=== PATIENT | female | born 1950 | race Caucasian/White ===

== ENCOUNTER → 2018-05-08 | Outpatient (CLI) | payer MEDICARE, OTHER ==
--- NOTE | 2018-05-08 14:07 | RAD ---
EXAM: Dual energy x-ray absorptiometry (DEXA). HISTORY: Postmenopausal female presents for osteoporosis screening. COMPARISON: 05/03/2016 and 05/06/2008. TECHNIQUE: Dual energy x-ray absorptiometry of the lumbar spine and right hip was performed. Calculation of bone mineral density based on standard deviations above or below the expected young adult normal value (T-score) was completed. FINDINGS: The average bone mineral density in the 1st through 4th lumbar vertebrae is 1.103 g/cmxcm, corresponding with a T-score of -0.6. There has been a 3.6% decrease in bone mineral density of the lumbar spine compared to a baseline study dated 05/06/2008. The average total bone mineral density in the right hip is 0.957 g/cmxcm, corresponding with a T-score of 0.0. There has been a 3.4% decrease in bone mineral density of the right hip compared to a baseline study dated 05/06/2008. IMPRESSION: Normal bone mineral density. Note: Definitions established by the World Health Organization: 1. Normal: T-score is -1.0 or above. 2. Osteopenia: T-score is between -1.0 and -2.5 . 3. Osteoporosis: T-score is -2.5 or below. Electronically signed by: Genoveva Blackburn MD (05/08/2018 2:03 PM) [place] [id number]
== END | disposition home or self-care (01) ==
LOC: DXRAD 11:41
PROVIDERS: ATTEND Family Medicine
DX: Z13.820 Encounter for screening for osteoporosis (principal); Z78.0 Asymptomatic menopausal state
CPT/HCPCS: 77080

== ENCOUNTER → 2020-05-12 | Outpatient (CLI) | payer MEDICARE, OTHER ==
--- NOTE | 2020-05-12 15:30 | RAD ---
Bone densitometry 05/12/2020 10:00 AM Indication: Reason: OSTEOPOROSIS / Spl. Instructions: / History: Comparison Study bone densitometry April 30, 2018 Discussion: Bone Densitometry was performed with dual photon absorption of the lumbar spine and proximal right femur. Lumbar Spine: Bone average density is 1.095g/cm2 for L1-L4. T-Score is -0.7. (Prior T score -0.6) Right femoral neck: Bone average density is 0.885g/cm2. T-Score is -1.1. (Prior T score -1.2) IMPRESSION: Osteopenia, based on decreased bone mineral density of the right femoral neck Note: Definitions established by the World Health Organization: Normal: T-score is -1.0 or above. Osteopenia: T-score is between -1.0 and -2.5. Osteoporosis: T-score is -2.5 or below. Electronically signed by: Teddy Tamayo MD (05/12/2020 3:28 PM) [id number]
== END | disposition home or self-care (01) ==
LOC: DXRAD 09:54
PROVIDERS: ATTEND Family Medicine
DX: M85.851 Other specified disorders of bone density and structure, right thigh (principal); M81.8 Other osteoporosis without current pathological fracture
CPT/HCPCS: 77080